=== PATIENT | female | born 2005 | race Hispanic/Latino ===

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

== ENCOUNTER 2023-10-22 14:21 | Emergency (ER) | payer SELFPAY | END 2023-10-22 15:01 | disposition home or self-care (01) | LOC: BURERS 14:21 | DX: J03.80 Acute tonsillitis due to other specified organisms (principal); B97.89 Other viral agents as the cause of diseases classified elsewhere | CPT/HCPCS: 87081; 87430; 99283 ==

== ENCOUNTER 2024-03-15 20:27 | Emergency (ER) | payer SELFPAY ==
[2024-03-15] MEDS ORDERED: Lidocaine Viscous Sol 2% 15 ml UD Cup ONE (20:47)
[2024-03-15] MEDS ORDERED: Mag-Al 1200 mg/1200 mg/30 ML UDCUP ONE (20:47)
== END 2024-03-15 20:54 | disposition home or self-care (01) ==
LOC: BURERS 20:27
DX: K29.00 Acute gastritis without bleeding (principal)
CPT/HCPCS: 99283

== ENCOUNTER 2024-03-26 17:18 | Emergency (ER) | payer SELFPAY | END 2024-03-26 17:58 | disposition home or self-care (01) | LOC: BURERS 17:18 | DX: B34.9 Viral infection, unspecified (principal); J06.9 Acute upper respiratory infection, unspecified | CPT/HCPCS: 99283 ==

== ENCOUNTER 2024-08-11 14:59 | Emergency (ER) | payer SELFPAY | END 2024-08-11 15:50 | disposition home or self-care (01) | LOC: BURERS 14:59 | DX: J11.1 Influenza due to unidentified influenza virus with other respiratory manifestations (principal) | CPT/HCPCS: 99283 ==

== ENCOUNTER 2025-01-31 22:23 | Emergency (ER) | payer MEDICAID, OTHER ==
[2025-01-31] MEDS ORDERED: HYDROcodone/Acetaminophen 5/325 mg Tablet ONE (22:49)
[2025-01-31 22:55] LABS: #Basophils 0.0 thou/uL (0.0-0.2); #Eosinophils 0.1 thou/uL (0.0-0.7); #Lymphocytes 1.5 thou/uL (1.20-3.40); #Monocytes 0.7 thou/uL (0.11-0.59); #Neutrophils 10.5 thou/uL (1.40-6.50); %Basophils 0.2 % (0.0-1.0); %Eosinophils 1.1 % (0.0-10.0); %Lymphocytes 11.6 % (21.0-51.0); %Monocytes 5.7 % (0.0-10.0); %Neutrophils 81.4 % (42.0-75.0); Hematocrit 33.7 % (36.0-47.0); Hemoglobin 11.8 g/dL (12.0-16.0); Mean Corpuscular Hemoglobin 26.7 pg (27.0-31.0); Mean Corpuscular Volume 76.5 fl (78.0-98.0); Platelet Count 275 10x3/uL (130-400); Red Blood Cell (RBC) Count 4.41 mill/uL (4.20-5.40); White Blood Cell (WBC) Count 12.9 10x3/uL (4.8-10.8)
[2025-01-31 22:56] LABS: Glucose, Urine (Dipstick) Negative (Negative); Leukocyte Trace (Negative); Protein, Urine (Dipstick) Negative (Neg-Trace); Specific Gravity, Urine 1.020 (1.005-1.030)
[2025-01-31 23:12] LABS: ALT (SGPT) 128 U/L (Less than 34); AST (SGOT) 94 U/L (11-34); Albumin 3.0 g/dL (3.1-4.5); Alkaline Phosphatase 61 U/L (40-110); Anion Gap 14 mmol/L (10-20); BUN (Urea Nitrogen) 6 mg/dL (7.0-18.7); Bilirubin, Total 0.2 mg/dL (0.3-1.2); Calc. Creatinine Clearance 0 mL/min (70-130); Calcium 8.3 mg/dL (7.8-10.44); Carbon Dioxide 17 mmol/L (22-29); Chloride 109 mmol/L (98-107); Globulin 3.4 g/dL (2.4-3.5); Glucose 97 mg/dL (70-105); Lipase 6 U/L (8-78); Potassium 4.0 mmol/L (3.5-5.1); Sodium 136 mmol/L (136-145)
[2025-01-31 23:19] LABS: Bacteria/HPF Rare-Few HPF (None Seen); CAUTI Indications for Culture Pregnancy; RBC/HPF None Seen HPF (0-3); WBC/HPF 0-3 HPF (0-3)
[2025-01-31 23:20] LABS: Urine Culture Reflex Yes Yes
== END 2025-01-31 23:58 | disposition home or self-care (01) ==
LOC: BURERS 22:23
DX: O99.892 Other specified diseases and conditions complicating childbirth (principal); R10.9 Unspecified abdominal pain; Z3A.20 20 weeks gestation of pregnancy
CPT/HCPCS: 36415; 80053; 81001; 83690; 84702; 85025; 87086; 99284